=== PATIENT | male | born 1970 | race Caucasian/White ===

== ENCOUNTER 2016-10-10 10:40 | Outpatient (CLI) | payer MEDICARE, MEDICAID | END 2016-10-10 10:41 | disposition home or self-care (01) | DX: I10 Essential (primary) hypertension (principal) ==

== ENCOUNTER 2017-02-04 10:40 | Outpatient (CLI) | payer MEDICARE, MEDICAID | END 2017-02-04 10:41 | disposition home or self-care (01) | LOC: SC 10:40 | PROVIDERS: ATTEND Internal Medicine Pulmonary Disease | DX: G47.33 Obstructive sleep apnea (adult) (pediatric) (principal); K21.9 Gastro-esophageal reflux disease without esophagitis; J44.9 Chronic obstructive pulmonary disease, unspecified | CPT/HCPCS: 99203; G0463; 99212 ==

== ENCOUNTER 2017-03-05 19:47 | Outpatient (CLI) | payer MEDICARE, MEDICAID | END 2017-03-05 19:48 | disposition home or self-care (01) | LOC: SC 19:47 | PROVIDERS: ATTEND Internal Medicine Pulmonary Disease | DX: G47.33 Obstructive sleep apnea (adult) (pediatric) (principal); G47.61 Periodic limb movement disorder | CPT/HCPCS: 95810 ==

== ENCOUNTER 2017-03-31 13:48 | Outpatient (CLI) | payer MEDICARE, MEDICAID | END 2017-03-31 13:49 | disposition home or self-care (01) | LOC: SC 13:48 | PROVIDERS: ATTEND Nurse Practitioner Family | DX: G47.61 Periodic limb movement disorder (principal); R06.83 Snoring | CPT/HCPCS: 99213; G0463; 99212 ==

== ENCOUNTER 2017-04-02 11:45 | Outpatient (CLI) | payer MEDICARE, MEDICAID ==
[2017-04-02 19:36] LABS: ALBUMIN/GLOBULIN RATIO 1.8 (1.0-2.2); BILIRUBIN,TOTAL 0.6 mg/dL (0.2-1.0); BUN - BLOOD UREA NITROGEN 11 mg/dL (6-20); CALCIUM 9.3 mg/dL (8.5-10.3); CARBON DIOXIDE - CO2 28 mmol/L (21-32); CHLORIDE 101 mmol/L (101-111); CHOL/HDL RATIO 3.8 (<5.0); CHOLESTEROL 138 mg/dL; CREATININE 0.9 mg/dL (0.6-1.2); GFR - MDRD 90 (>89); GLUCOSE 100 mg/dL (70-100); HDL CHOLESTEROL 36 mg/dL; LDL/HDL RATIO 2.5 (<3.6); POTASSIUM 3.7 mmol/L (3.5-5.0); SODIUM 139 mmol/L (135-145); TRIGLYCERIDES 63 mg/dL; VLDL CHOLESTEROL 13 mg/dL
== END 2017-04-02 11:46 | disposition home or self-care (01) ==
LOC: LAB.WCP 11:45
PROVIDERS: ATTEND Family Medicine
DX: E78.5 Hyperlipidemia, unspecified (principal)
CPT/HCPCS: 36415; 80053; 80061

== ENCOUNTER 2017-08-15 11:30 | Outpatient (CLI) | payer MEDICARE, MEDICAID ==
[2017-08-15 19:29] LABS: THYROID STIMULATING HORMONE 0.68 uIU/mL (0.34-5.60)
[2017-08-15 19:31] LABS: FREE T4 (FREE THYROXINE) 0.67 ng/dL (0.58-1.64)
== END 2017-08-15 11:31 | disposition home or self-care (01) ==
LOC: LAB.WCP 11:30
PROVIDERS: ATTEND Family Medicine
DX: E05.90 Thyrotoxicosis, unspecified without thyrotoxic crisis or storm (principal)
CPT/HCPCS: 36415; 84439; 84443; 84481

== ENCOUNTER 2018-07-29 12:06 | Outpatient (CLI) | payer MEDICARE, MEDICAID ==
[2018-07-29 19:20] LABS: BASOPHILS # (AUTO) 0.1 10^3/uL (0.0-0.1); BASOPHILS % (AUTO) 1.5 %; EOSINOPHILS # (AUTO) 0.8 10^3/uL (0.0-0.7); EOSINOPHILS % (AUTO) 12.2 %; HGB - HEMOGLOBIN 13.3 g/dL (14.0-18.0); LYMPHOCYTES # (AUTO) 1.6 10^3/uL (1.5-3.5); LYMPHOCYTES % (AUTO) 23.9 %; MEAN CORPUSCULAR HEMOGLOBIN 29.7 pg (27.0-31.0); MEAN CORPUSCULAR HGB CONC 33.2 g/dL (32.0-36.0); MEAN CORPUSCULAR VOLUME 89.5 fL (80.0-94.0); MONOCYTES # (AUTO) 0.4 10^3/uL (0.0-1.0); MONOCYTES % (AUTO) 5.8 %; NEUTROPHILS # (AUTO) 3.8 10^3/uL (1.5-6.6); NEUTROPHILS % (AUTO) 56.6 %; PLT - PLATELET COUNT 271 10^3/uL (130-450); RED BLOOD COUNT 4.47 10^6/uL (4.70-6.10); RED CELL DISTRIBUTION WIDTH 13.3 % (12.0-15.0); WHITE BLOOD COUNT 6.7 x10^3/uL (4.8-10.8)
[2018-07-29 19:32] LABS: ALBUMIN/GLOBULIN RATIO 1.3 (1.0-2.2); ALKALINE PHOSPHATASE 69 IU/L (42-121); ALT ALANINE AMINOTRANSFERASE 14 IU/L (10-60); AST ASPARTATE AMINOTRANSFERASE 17 IU/L (10-42); BILIRUBIN,TOTAL 0.8 mg/dL (0.2-1.0); BUN - BLOOD UREA NITROGEN 10 mg/dL (6-20); CALCIUM 9.1 mg/dL (8.5-10.3); CARBON DIOXIDE - CO2 30 mmol/L (21-32); CHLORIDE 100 mmol/L (101-111); CHOLESTEROL 151 mg/dL; CREATININE 0.8 mg/dL (0.6-1.2); GFR - MDRD 103 (>89); GLUCOSE 96 mg/dL (70-100); HDL CHOLESTEROL 50 mg/dL; SODIUM 139 mmol/L (135-145); TOTAL PROTEIN 7.1 g/dL (6.7-8.2)
[2018-07-29 19:41] LABS: HB2 TOTAL 14.1 g/dL; HEMOGLOBIN A1C 0.46 g/dL; HEMOGLOBIN A1C % 5.1 % (4.6-6.2)
[2018-07-29 19:56] LABS: LDL CHOLESTEROL,DIRECT 94 mg/dL; LDLD/HDL RATIO 1.9 (<3.6)
== END 2018-07-29 12:07 | disposition home or self-care (01) ==
LOC: LAB.WCP 12:06
PROVIDERS: ATTEND Family Medicine
DX: E78.5 Hyperlipidemia, unspecified (principal); R73.01 Impaired fasting glucose; R79.89 Other specified abnormal findings of blood chemistry; D64.9 Anemia, unspecified
CPT/HCPCS: 36415; 80053; 80061; 83036; 83721; 84443; 85025

== ENCOUNTER 2018-08-06 11:32 | Outpatient (CLI) | payer MEDICARE, MEDICAID ==
[2018-08-06 20:31] LABS: FREE T4 (FREE THYROXINE) 0.91 ng/dL (0.58-1.64)
== END 2018-08-06 11:33 | disposition home or self-care (01) ==
LOC: LAB.WCP 11:32
PROVIDERS: ATTEND Family Medicine
DX: R79.89 Other specified abnormal findings of blood chemistry (principal)
CPT/HCPCS: 36415; 84439; 84443

== ENCOUNTER 2018-09-09 11:12 | Outpatient (CLI) | payer MEDICARE, MEDICAID ==
--- NOTE | 2018-09-10 11:54 | Ultrasound Report ---
Reason: HYPERTHYROIDISM Procedure Date: 09/09/2018 Accession Number: [id number] / [id number] Procedure: US - Head or Neck Soft Tissue CPT Code: FULL RESULT: EXAM: THYROID ULTRASOUND EXAM DATE: 09/09/2018 11:18 AM. CLINICAL HISTORY: Hyperthyroidism. COMPARISON: None. TECHNIQUE: Real time sonographic imaging of the thyroid was performed by the fractionating still operator. Multiple open claims representative static images were saved for review. FINDINGS: THYROID GLAND: Right Lobe: 6.1 x 2.2 x 2.5 cm, volume 17.5 cc. Normal background echotexture. Right Lobe Nodules: 1. Oval, circumscribed, parallel orientation mixed cystic solid nonvascular mass 10 x 6 x 9 mm. 2. 4 mm oval mass midpole, hypoechoic. 3. Nonvascular mildly hypoechoic, 8 x 7 x 8 mm, lower pole. Left Lobe: 5 x 1.6 x 2.2 cm, volume 9.2 cc. Normal background echotexture. Left Lobe Nodules: 1. 3 x 2 x 3 mm oval hypoechoic upper lobe nodule. Isthmus: 0.5 cm AP. Isthmic Nodules: None. LYMPH NODES: No adenopathy demonstrated in the central or lateral compartment. OTHER: None. IMPRESSION: 1. Low suspicion 1 cm nodule mid pole right thyroid. 2. 8 mm solid nodule lower pole right thyroid of intermediate suspicion does not meet criteria for FNA based on size; recommend 6 month follow-up imaging to ensure imaging stability. 3. Sub-5 mm intermediate suspicion oval nodules right mid pole and left upper pole thyroid can be followed at the time of surveillance imaging. Management recommendations are based on 2015 [place] [employer] Management Guidelines for Adult Patients with Thyroid Nodules and Differentiated Thyroid Cancer. RADIA
== END 2018-09-09 11:13 | disposition home or self-care (01) ==
LOC: DI 11:12
PROVIDERS: ATTEND Family Medicine
DX: E04.2 Nontoxic multinodular goiter (principal)
CPT/HCPCS: 76536

== ENCOUNTER 2019-01-15 12:08 | Outpatient (CLI) | payer MEDICARE, MEDICAID ==
--- NOTE | 2019-01-17 07:13 | Ultrasound Report ---
Reason: HYPERTHYROIDISM, THYROID NODULE Procedure Date: 01/15/2019 Accession Number: [id number] / [id number] Procedure: US - Head or Neck Soft Tissue CPT Code: FULL RESULT: EXAM: THYROID ULTRASOUND EXAM DATE: 01/15/2019 01:01 PM. CLINICAL HISTORY: HYPERTHYROIDISM, THYROID NODULE. COMPARISON: HEAD OR NECK SOFT TISSUE 09/09/2018 11:18 AM. TECHNIQUE: Real time sonographic imaging of the thyroid was performed by the computer applications engineer. Multiple motor vehicle representative static images were saved for review. FINDINGS: THYROID GLAND: Right Lobe: 6.0 x 1.5 x 2.6 cm, volume 11.2 cc. Normal background echotexture. Right Lobe Nodules: Hypoechoic solid nodule in the superior pole measures 4 x 3 x 5 mm, intermediate suspicion sonographic pattern, previously 3 x 4 x 6 mm. Cystic nodule with eccentric solid area in the mid thyroid lobe measures 1.0 x 0.7 x 0.8 cm, low suspicion sonographic pattern, previously 0.6 x 0.9 x 0.7 cm. Cystic nodule in the inferior pole measures 3 x 2 x 4 mm, benign sonographic pattern. Left Lobe: 5.0 x 2.4 x 1.7 cm, volume 10.0 cc. Normal background echotexture. Left Lobe Nodules: Solid and cystic nodule in the mid thyroid lobe measures 4 x 2 x 3 mm, low suspicion sonographic pattern. Solid and cystic nodule in the mid thyroid lobe measures 3 x 2 x 3 mm, low suspicion sonographic pattern, previously 2 x 3 x 6 mm. Isthmus: 0.8 cm AP. Isthmic Nodules: None. LYMPH NODES: No adenopathy demonstrated in the central or lateral compartment. OTHER: None. IMPRESSION: Multinodular goiter, stable. 1-2 year follow-up can be obtained Management recommendations are based on 2015 [place] [employer] Management Guidelines for Adult Patients with Thyroid Nodules and Differentiated Thyroid Cancer. RADIA
== END 2019-01-15 12:09 | disposition home or self-care (01) ==
LOC: DI 12:08
PROVIDERS: ATTEND Family Medicine
DX: E05.90 Thyrotoxicosis, unspecified without thyrotoxic crisis or storm (principal); E04.2 Nontoxic multinodular goiter
CPT/HCPCS: 76536

== ENCOUNTER 2019-05-17 11:01 | Outpatient (CLI) | payer MEDICARE, MEDICAID ==
--- NOTE | 2019-05-17 17:07 | CT Report ---
Reason: COPD, ASTHMA Procedure Date: 05/17/2019 Accession Number: [id number] / [id number] Procedure: CT - CHEST WO CPT Code: Final Report FULL RESULT: EXAM: CT CHEST EXAM DATE: 05/17/2019 11:24 AM. CLINICAL HISTORY: COPD, ASTHMA. COMPARISONS: CHEST W/ 03/16/2016. TECHNIQUE: Routine helical CT imaging was performed through the chest. IV contrast: None. Reconstructions: Coronal and sagittal. In accordance with CT protocol optimization, one or more of the following dose reduction techniques were utilized for this exam: automated exposure control, adjustment of mA and/or KV based on patient size, or use of iterative reconstructive technique. FINDINGS: Lungs/Pleura: Mild centrilobular emphysema. No nodules, bronchial thickening, consolidation, or edema. Pulmonary vasculature is normal. No pericardial or pleural effusion. No pneumothorax. Mediastinum: No adenopathy or masses. The heart and great vessels are normal. Bones: Mild multilevel generative changes throughout the thoracic spine. Visualized Abdomen: Unremarkable. IMPRESSION: Mild centrilobular emphysema. No superimposed acute cardiopulmonary process. RADIA
== END 2019-05-17 11:02 | disposition home or self-care (01) ==
LOC: DI 11:01
PROVIDERS: ATTEND Physician Assistant
DX: J43.2 Centrilobular emphysema (principal)
CPT/HCPCS: 71250

== ENCOUNTER 2020-09-26 08:00 | Outpatient (CLI) | payer MEDICARE, MEDICAID ==
[2020-09-26 17:53] LABS: BASOPHILS # (AUTO) 0.1 10^3/uL (0.0-0.1); BASOPHILS % (AUTO) 1.1 %; EOSINOPHILS # (AUTO) 0.5 10^3/uL (0.0-0.7); EOSINOPHILS % (AUTO) 4.3 %; HCT - HEMATOCRIT 43.6 % (42.0-52.0); HGB - HEMOGLOBIN 14.3 g/dL (14.0-18.0); LYMPHOCYTES # (AUTO) 2.2 10^3/uL (1.5-3.5); LYMPHOCYTES % (AUTO) 20.3 %; MEAN CORPUSCULAR HEMOGLOBIN 29.9 pg (27.0-31.0); MEAN CORPUSCULAR HGB CONC 32.8 g/dL (32.0-36.0); MEAN PLATELET VOLUME 10.8 fL (7.4-11.4); MONOCYTES # (AUTO) 0.8 10^3/uL (0.0-1.0); MONOCYTES % (AUTO) 7.1 %; NEUTROPHILS # (AUTO) 7.1 10^3/uL (1.5-6.6); NEUTROPHILS % (AUTO) 66.8 %; PLT - PLATELET COUNT 320 10^3/uL (130-450); RED BLOOD COUNT 4.79 10^6/uL (4.70-6.10); RED CELL DISTRIBUTION WIDTH 11.9 % (12.0-15.0); WHITE BLOOD COUNT 10.6 x10^3/uL (4.8-10.8)
[2020-09-26 18:30] LABS: THYROID STIMULATING HORMONE 0.42 uIU/mL (0.34-5.60)
[2020-09-26 18:32] LABS: % IRON SATURATION 20 % (20-50); IRON 71 ug/dL (45-182); TOTAL IRON BINDING CAPACITY 353 ug/dL (250-450); TRANSFERRIN 252 mg/dL (180-329)
[2020-09-26 19:08] LABS: ALBUMIN 4.5 g/dL (3.2-5.5); ALBUMIN/GLOBULIN RATIO 1.6 (1.0-2.2); ALKALINE PHOSPHATASE 49 IU/L (42-121); ALT ALANINE AMINOTRANSFERASE 26 IU/L (10-60); AST ASPARTATE AMINOTRANSFERASE 23 IU/L (10-42); BILIRUBIN,TOTAL 0.9 mg/dL (0.2-1.0); BUN - BLOOD UREA NITROGEN 11 mg/dL (6-20); CALCIUM 9.3 mg/dL (8.5-10.3); CARBON DIOXIDE - CO2 25 mmol/L (21-32); CHLORIDE 98 mmol/L (101-111); CHOL/HDL RATIO 3.5 (<5.0); CHOLESTEROL 146 mg/dL; CREATININE 1.2 mg/dL (0.6-1.2); GFR - MDRD 64 (>89); GLUCOSE 118 mg/dL (70-100); HDL CHOLESTEROL 42 mg/dL; LDL CHOLESTEROL,CALCULATED 93 mg/dL; LDL/HDL RATIO 2.2 (<3.6); POTASSIUM 3.8 mmol/L (3.5-5.0); SODIUM 136 mmol/L (135-145); TOTAL PROTEIN 7.4 g/dL (6.7-8.2); TRIGLYCERIDES 55 mg/dL; VLDL CHOLESTEROL 11 mg/dL
[2020-09-26 20:17] LABS: ESTIMATED AVERAGE GLUCOSE 108 mg/dL (70-100); HEMOGLOBIN A1c% 5.4 % (4.27-6.07)
== END 2020-09-26 23:59 | disposition home or self-care (01) ==
LOC: LAB.WCP 08:00
PROVIDERS: ATTEND Family Medicine
DX: E78.5 Hyperlipidemia, unspecified (principal); Z12.5 Encounter for screening for malignant neoplasm of prostate; E05.90 Thyrotoxicosis, unspecified without thyrotoxic crisis or storm; D64.9 Anemia, unspecified; R73.01 Impaired fasting glucose
CPT/HCPCS: 36415; 80053; 80061; 82607; 82728; 83036; 83540; 84443; 84466; 85025; G0103; 83721; 84153

== ENCOUNTER 2020-12-18 09:20 | Observation (INO) | payer MEDICARE, MEDICAID ==
[2020-12-18] MEDS ORDERED: LACTATED RINGERS 1,000 ML IV ONE ×2 (09:22→11:07)
[2020-12-18] MEDS ORDERED: METOPROLOL 5 MG/5 ML VIAL IVP ONE ×2 (10:57→11:53)
[2020-12-18] MEDS: METOPROLOL 5 MG/5 ML VIAL IVP PRN ×2 (11:00→12:00)
--- NOTE | 2020-12-18 11:00 | CONSULTATION NOTE ---
Consultation Report: Patient arrived for scheduled screening colonoscopy. Pt was noted to have HR in 140-150s, irregular pulse. EKG ordered which showed SVT. Hospitalist consulted to assist with care. Patient will have lab work and beta blockade per hospitalist. Will re-evaluate in a few hours after labwork completed.
[2020-12-18 11:35] LABS: BASOPHILS # (AUTO) 0.1 10^3/uL (0.0-0.1); BASOPHILS % (AUTO) 0.8 %; EOSINOPHILS # (AUTO) 0.5 10^3/uL (0.0-0.7); EOSINOPHILS % (AUTO) 4.7 %; HCT - HEMATOCRIT 38.6 % (42.0-52.0); HGB - HEMOGLOBIN 12.8 g/dL (14.0-18.0); LYMPHOCYTES % (AUTO) 19.7 %; MEAN CORPUSCULAR HEMOGLOBIN 29.6 pg (27.0-31.0); MEAN CORPUSCULAR HGB CONC 33.2 g/dL (32.0-36.0); MEAN CORPUSCULAR VOLUME 89.4 fL (80.0-94.0); MEAN PLATELET VOLUME 9.7 fL (7.4-11.4); MONOCYTES # (AUTO) 0.9 10^3/uL (0.0-1.0); MONOCYTES % (AUTO) 8.9 %; NEUTROPHILS # (AUTO) 6.7 10^3/uL (1.5-6.6); NEUTROPHILS % (AUTO) 65.5 %; PLT - PLATELET COUNT 258 10^3/uL (130-450); RED BLOOD COUNT 4.32 10^6/uL (4.70-6.10); RED CELL DISTRIBUTION WIDTH 12.5 % (12.0-15.0); WHITE BLOOD COUNT 10.2 x10^3/uL (4.8-10.8)
[2020-12-18 11:50] LABS: ALBUMIN 4.3 g/dL (3.2-5.5); ALBUMIN/GLOBULIN RATIO 1.5 (1.0-2.2); BILIRUBIN,TOTAL 0.9 mg/dL (0.2-1.0); CALCIUM 8.5 mg/dL (8.5-10.3); CREATININE 1.3 mg/dL (0.6-1.2); MAGNESIUM 2.3 mg/dL (1.7-2.8); PHOSPHORUS 4.5 mg/dL (2.5-4.6); POTASSIUM 3.3 mmol/L (3.5-5.0); TOTAL PROTEIN 7.2 g/dL (6.7-8.2)
[2020-12-18] MEDS ORDERED: ACETAMINOPHEN 325 MG TABLET PO PRN (11:52)
[2020-12-18] MEDS ORDERED: ONDANSETRON ODT 4 MG TABLET TL PRN (11:52)
[2020-12-18] MEDS ORDERED: ZOLPIDEM 5 MG TABLET PO PRN (11:52)
[2020-12-18] MEDS ORDERED: SODIUM CHLORIDE FLUSH 0.9% 10 ML SYRINGE IVP PRN (11:52)
[2020-12-18] MEDS ORDERED: IBUPROFEN 600 MG TABLET PO PRN (11:52)
[2020-12-18] MEDS ORDERED: MORPHINE 2 MG/ML CARPUJECT IVP PRN (11:52)
[2020-12-18] MEDS ORDERED: oxyCODONE 5 MG TABLET PO PRN (11:52)
[2020-12-18] MEDS: METOPROLOL TARTRATE 25 MG TABLET PO SCH ×2 (13:00→20:29)
[2020-12-18] MEDS ORDERED: POTASSIUM CHLOR 10 MEQ/100 ML 10 MEQ/100 ML BAG IV ONE ×2 (13:01→14:03)
[2020-12-18] MEDS: SODIUM CHLORIDE 0.9% 1,000 ML IV SCH ×2 (13:02→23:53)
[2020-12-18] MEDS ORDERED: SODIUM CHLORIDE 0.9% 500 ML IV ONE (13:03)
--- NOTE | 2020-12-18 13:22 | PHARMACY PROGRESS NOTE ---
- Best Possible Medication History Admit Date and Time: Processed by: Nursing Medication History completed: Yes Patient Interview: Completed Secondary Source(s): Physician records, Pharmacy records, Insurance records As the person ultimately responsible for medication therapy, providers are able to order a medication from an existing home medication list in [facility] via the "Reconcile Routine" prior to Confirmation of that medication by technology support analyst. Such practice is discouraged except when the physician, in their clinical judgment, deems that a medical need exists for a medication without regard to previous use.
[2020-12-18 17:47] LABS: B. PARAPERTUSSIS- RESP PCR PAN NOT DETECTED; B. PERTUSSIS- RESP PCR PANEL NOT DETECTED; C. PNEUMONIAE- RESP PCR PANEL NOT DETECTED; CORONAVIRUS 229E-RESP PCR NOT DETECTED; CORONAVIRUS HKU1-RESP PCR NOT DETECTED; CORONAVIRUS NL63-RESP PCR NOT DETECTED; CORONAVIRUS OC43-RESP PCR NOT DETECTED; HUMAN METAPNEUMOVIRUS NOT DETECTED; INFLUENZA A- RESP PCR PANEL NOT DETECTED; INFLUENZA B - RESP PCR PANEL NOT DETECTED; M. PNEUMONIAE- RESP PCR PANEL NOT DETECTED; PARAINFLUENZA VIRUS 1 NOT DETECTED; PARAINFLUENZA VIRUS 2 NOT DETECTED; PARAINFLUENZA VIRUS 3 NOT DETECTED; PARAINFLUENZA VIRUS 4 NOT DETECTED; RHINOVIRUS/ENTEROVIRUS NOT DETECTED; RSV- RESP PCR PANEL NOT DETECTED; SARS-CoV-2 -RESP PCR PANEL NOT DETECTED
--- NOTE | 2020-12-18 17:48 | HISTORY & PHYSICAL EXAMINATION ---
Chief Complaint - Chief Complaint Chief Complaint: Fast heart beat History of Present Illness - Admitted From Admitted From:: PACU - History Obtained From Records Reviewed: Chart History obtained from: Patient and PACU staff Exam Limitations: None - History of Present Illness HPI Comment/Other: Patient is a 50-year-old male with a past medical history of COPD, hypertension, hyperlipidemia who presented to outpatient PACU today for an elective colonoscopy that was planned for today by Dr. Crawford. In the PACU in the preop assessment process he was placed on a registered nurse cardiac and found to be in SVT with heart rates in the 140s to 150s. He did not have any symptoms of chest pain or shortness of breath however this sustained long enough that Dr. Crawford called to request a medicine consult. I arrived at the bed and found the patient to be comfortable in no acute distress with no chest pain or shortness of breath. He did in fact appear to be either an SVT or in atrial fibrillation with rapid ventricular response which was difficult to assess on athletic monitor. EKG looked like and was read as SVT. His blood pressure was in the 115 to 80s neighborhood however escalated shortly after to the 150s over 90s. After taking a history from the patient and assessing that he may have had a history of some arrhythmia of some kind, and that he had a normal stress test 1 year ago, I proceeded to order stat labs including CBC, CMP, magnesium, phosphorus, troponin, and requested 5 mg Toprol IV push. This did not affect the heart rate very much and this was repeated ultimately 3 times on he was also given a dose of metoprolol 20 mg p.o. which eventually did decrease his heart rate to normal rates. After discussing with surgeon and anesthesia, we decided to keep the patient in observation overnight to further work this up, obtain labs, to maintain control of his heart rate for probable colonoscopy tomorrow. History - Past Medical History Cardiovascular: reports: Hypertension, High cholesterol Respiratory: reports: Asthma, COPD GI: reports: Hiatal hernia : reports: None Psych: reports: None Musculoskeletal: reports: None Derm: reports: Other MRSA Hx?: No - Past Surgical History General: reports: Colonoscopy Derm: reports: Skin cancer surgery - Family & Social History Family History Comment/Other: Patient denies any family history Living arrangement: At home Living Situation: With spouse/s.o. - Substance History Use: Uses substance without health or social issues: NONE - POLST POLST Status: Full Code Meds/Allgy - Home Medications Home Medications: Ambulatory Orders Medication Instructions Recorded Confirmed Albuterol Sulfate [Proair Hfa 2 puffs INH TID PRN 03/14/16 12/18/20 Inhaler] Fluticasone 110 Mcg [Flovent] 220 mcg INH BID 03/14/16 12/18/20 Montelukast [Singulair] 10 mg DAILY 03/14/16 12/18/20 Omeprazole [PriLOSEC] 20 mg DAILY 03/14/16 12/18/20 Pravastatin Sodium 10 mg PO DAILY 03/14/16 12/18/20 lisinopriL [Lisinopril] 10 mg PO DAILY 03/14/16 12/18/20 - Allergies Allergies/Adverse Reactions: Allergies Allergy/AdvReac Type Severity Reaction Status Date / Time No Known Drug Allergies Allergy Verified 03/14/16 09:54 Review of Systems - Constitutional Constitutional: denies: Fatigue - Cardiovascular Cariovascular: denies: Irregular heart rate, Palpitations, Chest pain - Respiratory Respiratory: reports: SOB with exertion (Patient reports being able to ambulate and do some yard work but eventually he usually does have to take a break due to difficulty breathing). denies: Cough, SOB at rest - All Other Systems All Other Systems: reports: Reviewed and negative Prior Level of Functionality: Fully ambulatory and independent Exam - Vital Signs Reviewed Vital Signs: Yes Vital Signs: Vital Signs x48h Temp Pulse Pulse Resp BP BP Pulse Ox 12/18/20 15:34 36.8 C 66 16 129/82 H 96 12/18/20 13:00 108/65 12/18/20 12:35 36.7 C 68 16 100/67 94 12/18/20 12:30 108/65 12/18/20 12:13 36.8 C 67 12 107/83 H 95 12/18/20 11:37 36.4 C L 115 H 12 112/77 96 12/18/20 11:30 100/67 12/18/20 11:00 36.6 C 127 H 14 116/84 H 95 12/18/20 10:15 36.6 C 127 H 13 113/56 L 95 - Physical Exam General Appearance: positive: No acute distress Eyes Bilateral: positive: Normal inspection ENT: positive: ENT inspection nml Neck: positive: Nml inspection Respiratory: positive: Chest non-tender, No respiratory distress, Breath sounds nml Cardiovascular: positive: No murmur, No gallop, Irregularly irregular, Tachycardia Peripheral Pulses: positive: 2+ Abdomen: positive: Non-tender, No organomegaly, Nml bowel sounds Skin: positive: Color nml, No rash, Warm Extremities: positive: Non-tender, Full ROM, Nml appearance Neurologic/Psychiatric: positive: Oriented x3, CN's nml (2-12), Motor nml Conclusion/Plan - Problem List (1) Supraventricular tachycardia Conclusion/Plan: Patient found to be in SVT sustained which initially did not respond to the first 2 doses of metoprolol IV. He was given a oral dose of 25 mg metoprolol tartrate followed by a third dose of Toprol IV and he eventually converted to sinus rhythm with heart rates in the 60s. I suspect he may have paroxysmal atrial fibrillation. Pending telemetry reads overnight, may need to consider anticoagulation at some points. Follow-up echocardiogram results, no lab abnormalities to suggest underlying etiology other than mild hypokalemia which would be expected with bowel prep Blood pressure tolerated metoprolol dosing fairly well. We will keep him observation in telemetry overnight and continue metoprolol scheduled 25 mg p.o. twice daily. Have ordered an echocardiogram but unfortunately central sterile technician is already left for the day, so we will follow this up tomorrow. Pending clinical course and outcome of studies likely can go home tomorrow post colonoscopy and follow-up with his PCP and/or qa consultant. (2) Hyperlipidemia Conclusion/Plan: Stable Continue home meds (3) Hypertension Conclusion/Plan: Stable Continue home meds Adding metoprolol for rate control, monitor blood pressures (4) COPD (chronic obstructive pulmonary disease) Conclusion/Plan: Stable without respiratory symptoms, wheezing, shortness of breath or oxygen requirement. As needed nebs (5) Hypokalemia due to excessive gastrointestinal loss of potassium Conclusion/Plan: Mild secondary to GI loss from the bowel prep prior to colonoscopy. Replaced orally. - Lab Results Fish Bones: 12/18/20 11:31 12/18/20 11:31 - EKG Results EKG Interpreted Independently: Yes EKG Comparison: No prior EKG Core Measures - Anticipated LOS I expect patient to be DC'd or transferred within 96 hours.: Yes - DVT/VTE - Prophylaxis VTE/DVT Device ordered at admit?: Yes
[2020-12-18] MEDS: SODIUM CHLORIDE FLUSH 0.9% 10 ML SYRINGE IVP SCH ×2 (17:50→23:54)
[2020-12-18] MEDS ORDERED: ALBUTEROL NEB 2.5 MG/3 ML INH PRN (18:06)
[2020-12-18] MEDS ORDERED: PRAVASTATIN 10 MG TABLET PO SCH (21:00)
[2020-12-19 06:13] LABS: CALCIUM 7.8 mg/dL (8.5-10.3); CREATININE 0.8 mg/dL (0.6-1.2); POTASSIUM 3.8 mmol/L (3.5-5.0)
[2020-12-19] MEDS ORDERED: PANTOPRAZOLE 40 MG TABLET PO SCH (07:00)
[2020-12-19] MEDS ORDERED: lisinopriL 5 MG TABLET PO SCH ×2 (09:00→09:25)
[2020-12-19] MEDS: METOPROLOL TARTRATE 25 MG TABLET PO SCH (09:30)
[2020-12-19] MEDS: SODIUM CHLORIDE 0.9% 1,000 ML IV SCH (09:31)
[2020-12-19] MEDS: SODIUM CHLORIDE FLUSH 0.9% 10 ML SYRINGE IVP SCH (09:31)
[2020-12-19] MEDS ORDERED: MIDAZOLAM 2 MG/2 ML VIAL ONE (12:00)
[2020-12-19] MEDS ORDERED: fentaNYL 100 MCG/2 ML VIAL ONE (12:02)
[2020-12-19] MEDS ORDERED: PROPOFOL 200 MG/20 ML VIAL IVP ONE (12:03)
[2020-12-19 13:02] VITALS: BP 107/64
--- NOTE | 2020-12-19 13:45 | DISCHARGE SUMMARY ---
Discharge Summary Admit Date: 12/18/20 Discharge Date: 12/19/20 Discharging Provider: Abdirahman Sams Primary Care Provider: Ammy Huntley Code Status: Attempt Resuscitation Condition at Discharge: Stable Discharge Disposition: 01 Home, Self Care - DIAGNOSES Admission Diagnoses: Supraventricular tachycardia Hyperlipidemia Hypertension COPD Hypokalemia due to excessive gastrointestinal loss of potassium Discharge Diagnoses with Status of Each Condition: Supraventricular tachycardia: Acute. Resolved Hyperlipidemia. Chronic. Continue home medication Hypertension: Chronic. Stable. Continue home medication COPD: Stable Hypokalemia due to excessive gastrointestinal loss of potassium: Acute. Resolved - HPI History of Present Illness: Patient is a 50-year-old male with a past medical history of COPD, hypertension, hyperlipidemia who presented to outpatient PACU today for an elective c olonoscopy that was planned for today by Dr. Crawford. In the PACU in the preop assessment process he was placed on a telemetry monitor and found to be in SVT with heart rates in the 140s to 150s. He did not have any symptoms of chest pain or shortness of breath however this sustained long enough that Dr. Crawford called to request a medicine consult. I arrived at the bed and found the patient to be comfortable in no acute distress with no chest pain or shortness of breath. He did in fact appear to be either an SVT or in atrial fibrillation with rapid ventricular response which was difficult to assess on cardiac monitor. EKG looked like and was read as SVT. His blood pressure was in the 115 to 80s neighborhood however escalated shortly after to the 150s over 90s. After taking a history from the patient and assessing that he may have had a history of some arrhythmia of some kind, and that he had a normal stress test 1 year ago, I proceeded to order stat labs including CBC, CMP, magnesium, phosphorus, troponin, and requested 5 mg Toprol IV push. This did not affect the heart rate very much and this was repeated ultimately 3 times on he was also given a dose of metoprolol 20 mg p.o. which eventually did decrease his heart rate to normal rates. After discussing with surgeon and anesthesia, we decided to keep the patient in observation overnight to further work this up, obtain labs, to maintain control of his heart rate for probable colonoscopy tomorrow. - HOSPITAL COURSE Hospital Course: Patient's SVT resolved after 2 doses of metoprolol IV and an oral dose of metoprolol tartrate 25 mg po. Speaking with the patient he reports a previous occurrence. He has seen cardiology for this before. He has been advised to follow-up with his PCP and or cardiology for further evaluation and recommendations. The plan had been to proceed with a 2D echocardiogram today 12/19/20. However this was again canceled because the patient had something to eat in the morning. He is agreeable to return to the hospital tomorrow 12/20/20 by 9 AM for outpatient colonoscopy as initially planned. He is being discharged in stable condition. He has been advised that he is supposed to have no food by mouth in preparation for the colonoscopy tomorrow. - ALLERGIES Allergies/Adverse Reactions: Allergies Allergy/AdvReac Type Severity Reaction Status Date / Time No Known Drug Allergies Allergy Verified 03/14/16 09:54 - MEDICATIONS Home Medications: Ambulatory Orders Medication Instructions Recorded Confirmed Albuterol Sulfate [Proair Hfa 2 puffs INH TID PRN 03/14/16 12/18/20 Inhaler] Fluticasone 110 Mcg [Flovent] 220 mcg INH BID 03/14/16 12/18/20 Montelukast [Singulair] 10 mg DAILY 03/14/16 12/18/20 Omeprazole [PriLOSEC] 20 mg DAILY 03/14/16 12/18/20 Pravastatin Sodium 10 mg PO DAILY 03/14/16 12/18/20 lisinopriL [Lisinopril] 10 mg PO QPM 03/14/16 12/19/20 - PHYSICAL EXAM AT DISCHARGE General Appearance: positive: No acute distress, Alert Eyes Bilateral: positive: PERRL, EOMI ENT: positive: No signs of dehydration Neck: positive: No JVD, Trachea midline Respiratory: positive: Chest non-tender, No respiratory distress, Breath sounds nml. negative: Wheezes, Rales, Rhonchi Cardiovascular: positive: Regular rate & rhythm, No murmur Abdomen: positive: Non-tender, No organomegaly, Nml bowel sounds. negative: Guarding, Rebound Back: positive: Nml inspection Skin: positive: Color nml, No rash, Warm, Dry Extremities: positive: Non-tender, Full ROM, Nml appearance, No pedal edema Neurologic/Psychiatric: positive: Oriented x3, Mood/affect nml - LABS Result Diagrams: 12/18/20 11:31 12/19/20 05:40 - TIME SPENT Time Spent in Discharge (Minutes): 25
--- NOTE | 2020-12-19 13:47 | Discharge Plan ---
Discharge Plan Problem Reviewed?: Yes Disposition: 01 Home, Self Care Condition: Stable Activity Restrictions: Activity as Tolerated Health Concerns: You presented to the hospital yesterday for an outpatient colonoscopy. However during the preop evaluation stage of the procedure he went into SVT which is supraventricular tachycardia with heart rate between 140-150. As a result he was admitted for further evaluation and treatment. You were treated with metoprolol and your heart rate improved to 60s. You were monitored overnight with no other incidents. Plan had been to proceed with colonoscopy today however this was canceled due to the fact that you had something to eat earlier in the day. You are being discharged home with a plan to return tomorrow morning by 9 AM for the colonoscopy. This was discussed with you and you expressed understanding and are in agreement with the plan. You are also to follow-up with your primary care physician for referral to cardiology whom you have seen before for the SVT. You are being discharged in stable condition. Plan of Treatment: You presented to the hospital yesterday for an outpatient colonoscopy. However during the preop evaluation stage of the procedure he went into SVT which is supraventricular tachycardia with heart rate between 140-150. As a result he was admitted for further evaluation and treatment. You were treated with metoprolol and your heart rate improved to 60s. You were monitored overnight with no other incidents. Plan had been to proceed with colonoscopy today however this was canceled due to the fact that you had something to eat earlier in the day. You are being discharged home with a plan to return tomorrow morning by 9 AM for the colonoscopy. This was discussed with you and you expressed understanding and are in agreement with the plan. You are also to follow-up with your primary care physician for referral to cardiology whom you have seen before for the SVT. You are being discharged in stable condition. Care Goals: You presented to the hospital yesterday for an outpatient colonoscopy. However during the preop evaluation stage of the procedure he went into SVT which is supraventricular tachycardia with heart rate between 140-150. As a result he was admitted for further evaluation and treatment. You were treated with metoprolol and your heart rate improved to 60s. You were monitored overnight with no other incidents. Plan had been to proceed with colonoscopy today however this was canceled due to the fact that you had something to eat earlier in the day. You are being discharged home with a plan to return tomorrow morning by 9 AM for the colonoscopy. This was discussed with you and you expressed understanding and are in agreement with the plan. You are also to follow-up with your primary care physician for referral to cardiology whom you have seen before for the SVT. You are being discharged in stable condition. Assessment: You presented to the hospital yesterday for an outpatient colonoscopy. However during the preop evaluation stage of the procedure he went into SVT which is supraventricular tachycardia with heart rate between 140-150. As a result he was admitted for further evaluation and treatment. You were treated with metoprolol and your heart rate improved to 60s. You were monitored overnight with no other incidents. Plan had been to proceed with colonoscopy today however this was canceled due to the fact that you had something to eat earlier in the day. You are being discharged home with a plan to return tomorrow morning by 9 AM for the colonoscopy. This was discussed with you and you expressed understanding and are in agreement with the plan. You are also to follow-up with your primary care physician for referral to cardiology whom you have seen before for the SVT. You are being discharged in stable condition. No Smoking: If you smoke, Please STOP! Call for help. Follow-up with: Ammy Huntley PA-C [Primary Care Provider] -
== END 2020-12-19 15:02 | disposition home or self-care (01) ==
LOC: SDS 09:20 → MS2 11:52
PROVIDERS: ADMIT Family Medicine Sports Medicine; ATTEND Internal Medicine
DX: I47.1 Supraventricular tachycardia (principal); E78.5 Hyperlipidemia, unspecified; I10 Essential (primary) hypertension; J44.9 Chronic obstructive pulmonary disease, unspecified; E87.6 Hypokalemia; Z87.891 Personal history of nicotine dependence; G47.30 Sleep apnea, unspecified; Z20.822 Contact with and (suspected) exposure to COVID-19
CPT/HCPCS: 36415; 80048; 80053; 83735; 84100; 84484; 85025; 87631; 93005; 93306; 96365; 96366; 96375; A9270; G0378; J7120; 0202U

== ENCOUNTER 2020-12-20 08:44 | Day surgery (SDC) | payer MEDICARE, MEDICAID ==
--- NOTE | 2020-12-20 09:34 | ANESTHESIA ---
Pre-Anesthesia VS, & Labs - Diagnosis hx of polyps - Procedure colonoscopy Height: 5 ft 10 in Weight (kg): 100 kg Body Mass Index: 31.6 BMI Classification: Obese - NPO >8 hours Home Medications and Allergies Albuterol Sulfate [Proair Hfa Inhaler] 2 puffs INH TID PRN 03/14/16 Fluticasone 110 Mcg [Flovent] 220 mcg INH BID 03/14/16 Montelukast [Singulair] 10 mg DAILY 03/14/16 Omeprazole [PriLOSEC] 20 mg DAILY 03/14/16 Pravastatin Sodium 10 mg PO DAILY 03/14/16 lisinopriL [Lisinopril] 10 mg PO QPM 03/14/16 Allergies/Adverse Reactions: Allergies Allergy/AdvReac Type Severity Reaction Status Date / Time No Known Drug Allergies Allergy Verified 03/14/16 09:54 Anes History & Medical History - Anesthetic History Anesthesia Complications: reports: No previous complications Family history of Anesthesia Complications: Denies Family history of Malignant Hyperthermia: Denies - Medical History Cardiovascular: reports: Hypertension, High cholesterol, Arrhythmia Pulmonary: reports: Asthma, COPD Gastrointestinal: reports: Hiatal hernia Urinary: reports: None Musculoskeletal: reports: None Skin: reports: Other Smoking Status: Former smoker - Surgical History General: reports: Colonoscopy Dermatologic: reports: Skin cancer surgery Exam General: Alert, Oriented x3, Cooperative Dental: WNL Mouth Openin Fingerbreadth Neck Mobility: Normal Mallampati classification: II Thyromental Distance: 4-6 cm Respiratory: Lungs clear Cardiovascular: Regular rate Plan Anesthesia Type: Total IV Consent for Procedure(s) Verified and Reviewed: Yes Code Status: Attempt Resuscitation ASA classification: 2-Mild systemic disease Is this case an emergency?: No
[2020-12-20] MEDS ORDERED: LACTATED RINGERS 1,000 ML IV ONE (11:47)
[2020-12-20 11:59] VITALS: BP 125/50
--- NOTE | 2020-12-20 16:00 | ANESTHESIA POST OP EVALUATION ---
Anesthesia Post Eval - Post Anesthesia Eval Vitals: Last Vital Signs Temp 36.5 C 12/20/20 11:49 Pulse 64 12/20/20 11:57 Resp 16 12/20/20 11:57 BP 125/50 L 12/20/20 11:57 Pulse Ox 100 12/20/20 11:57 CV Function Including HR & BP: Stable Pain Control: Satisfactory Nausea & Vomiting: Negative Mental Status: Baseline Respiratory Status: Airway Patent Hydration Status: Satisfactory Anesthesia Complications: None
== END 2020-12-20 08:45 | disposition home or self-care (01) ==
LOC: SDS 08:44
PROVIDERS: ATTEND Surgery
PROC: 0DBC8ZZ Excision of Ileocecal Valve, Via Natural or Artificial Opening Endoscopic (ICD-10-PCS; principal; 2020-12-20 10:00)
DX: Z12.11 Encounter for screening for malignant neoplasm of colon (principal); C18.0 Malignant neoplasm of cecum; D12.4 Benign neoplasm of descending colon; D12.3 Benign neoplasm of transverse colon; K63.89 Other specified diseases of intestine; K64.8 Other hemorrhoids; I10 Essential (primary) hypertension; E78.00 Pure hypercholesterolemia, unspecified; I47.1 Supraventricular tachycardia; J44.9 Chronic obstructive pulmonary disease, unspecified; E66.9 Obesity, unspecified; Z68.31 Body mass index [BMI] 31.0-31.9, adult; Z79.899 Other long term (current) drug therapy
CPT/HCPCS: 45385; J7120

== ENCOUNTER 2021-01-05 11:01 | Outpatient (CLI) | payer MEDICARE, MEDICAID ==
[2021-01-05 11:16] LABS: BASOPHILS # (AUTO) 0.1 10^3/uL (0.0-0.1); BASOPHILS % (AUTO) 1.1 %; EOSINOPHILS # (AUTO) 0.9 10^3/uL (0.0-0.7); EOSINOPHILS % (AUTO) 9.1 %; HCT - HEMATOCRIT 42.2 % (42.0-52.0); HGB - HEMOGLOBIN 13.8 g/dL (14.0-18.0); LYMPHOCYTES # (AUTO) 1.8 10^3/uL (1.5-3.5); LYMPHOCYTES % (AUTO) 19.8 %; MEAN CORPUSCULAR HEMOGLOBIN 29.9 pg (27.0-31.0); MEAN CORPUSCULAR HGB CONC 32.7 g/dL (32.0-36.0); MEAN CORPUSCULAR VOLUME 91.5 fL (80.0-94.0); MEAN PLATELET VOLUME 9.8 fL (7.4-11.4); MONOCYTES # (AUTO) 0.7 10^3/uL (0.0-1.0); MONOCYTES % (AUTO) 7.1 %; NEUTROPHILS # (AUTO) 5.8 10^3/uL (1.5-6.6); NEUTROPHILS % (AUTO) 62.1 %; PLT - PLATELET COUNT 280 10^3/uL (130-450); RED BLOOD COUNT 4.61 10^6/uL (4.70-6.10); RED CELL DISTRIBUTION WIDTH 12.4 % (12.0-15.0); WHITE BLOOD COUNT 9.3 x10^3/uL (4.8-10.8)
[2021-01-05 11:28] LABS: ALBUMIN 4.6 g/dL (3.2-5.5); ALBUMIN/GLOBULIN RATIO 1.6 (1.0-2.2); BILIRUBIN,TOTAL 0.5 mg/dL (0.2-1.0); CALCIUM 9.1 mg/dL (8.5-10.3); CREATININE 0.9 mg/dL (0.6-1.2); POTASSIUM 4.4 mmol/L (3.5-5.0); TOTAL PROTEIN 7.5 g/dL (6.7-8.2)
== END 2021-01-05 11:02 | disposition home or self-care (01) ==
LOC: LAB 11:01
PROVIDERS: ATTEND Surgery
DX: C18.6 Malignant neoplasm of descending colon (principal)
CPT/HCPCS: 36415; 80053; 82378; 85025

== ENCOUNTER 2021-01-12 11:06 | Outpatient (CLI) | payer MEDICARE, MEDICAID ==
[2021-01-12] MEDS ORDERED: IOVERSOL 320 100 ML VIAL IVP ONE ×2 (11:16→13:54)
[2021-01-12] MEDS ORDERED: IOVERSOL 320 50 ML VIAL ONE (11:16)
[2021-01-12] MEDS ORDERED: IOVERSOL 320 50 ML VIAL PO ONE (13:54)
--- NOTE | 2021-01-12 15:16 | CT Report ---
PROCEDURE: CHEST W INDICATIONS: COLON CANCER CONTRAST: IV CONTRAST: Optiray 320 ml: 100 PO CONTRAST: Optiray 320 ml50 TECHNIQUE: After the administration of intravenous contrast, images were acquired from the pulmonary apices to t he posterior costophrenic angles. Multiplanar MIP reformats were acquired. For radiation dose reduc tion, the following was used: automated exposure control, adjustment of mA and/or kV according to pa tient size. COMPARISON: Same day CT abdomen and pelvis. CT chest 05/17/2019. FINDINGS: Image quality: Excellent. Lungs and pleura: Mild to moderate emphysematous change. Right middle lobe fissural nodule measuring 0.3 cm is unchanged since 2019. A few calcified granuloma. Mild atelectasis or scarring. No pleural effusions or pneumothorax. Central and peripheral airways are patent and normal in caliber. Mediastinum: Heart size is normal. No pericardial effusion. No mediastinal or hilar adenopathy by size criteria. Thoracic aorta and central pulmonary arteries are normal in size. No central pulmonar y embolism. Esophagus is normal in caliber. No hiatal hernia. Bones and chest wall: No suspicious bony lesions. No vertebral body compression fractures. No axil hudson or supraclavicular adenopathy by size criteria. The thyroid is normal in size and there are no incidental findings. Abdomen: Visualized upper abdominal solid organs appear normal. Upper abdominal bowel loops are nor mal in caliber. IMPRESSION: 1. A few small pulmonary nodules measuring 0.4 cm or less. 2. Mild to moderate emphysematous change. 3. No enlarged lymph nodes identified. Reviewed by: Cristi Washington MD on 01/12/2021 3:15 PM PDT Approved by: Cristi Washington MD on 01/12/2021 3:15 PM PDT Station ID: [id number]
--- NOTE | 2021-01-12 15:25 | CT Report ---
PROCEDURE: Abdomen/Pelvis W INDICATIONS: COLON CANCER CONTRAST: IV CONTRAST: Optiray 320 ml: 100 PO CONTRAST: Optiray 320 ml50 TECHNIQUE: After the administration of oral and intravenous contrast, 5 mm thick sections acquired from the diap hragms to the symphysis. 5 mm thick coronal and sagittal reformats were acquired. For radiation dos e reduction, the following was used: automated exposure control, adjustment of mA and/or kV accordin g to patient size. COMPARISON: Same day CT chest, 05/17/2019. FINDINGS: Image quality: Excellent. ABDOMEN: Lung bases: Lung bases are clear. Heart size is normal. Solid organs: Liver and spleen are normal in size. Punctate hypodensity in the right lobe liver is u nchanged since 2019 and likely a benign cyst. Gallbladder is unremarkable. Biliary system is non dil ated. Pancreas enhances normally. No adrenal nodules. Kidneys demonstrate normal size and enhancem ent, without hydronephrosis. Peritoneum and bowel: No small bowel obstruction. No obvious mass. Mild diverticulosis. The appendix may be visualized. No free fluid or air. Nodes and vessels: Small mesenteric lymph nodes in the right lower quadrant. Largest measuring 0.9 cm , (3/51). No retroperitoneal adenopathy. Aorta and inferior vena cava are normal in size. Miscellaneous: Small fat-containing periumbilical hernia. PELVIS: Genitourinary: Bladder wall thickness is normal. Miscellaneous: No inguinal hernias or adenopathy. Bones: No suspicious bony lesions. No vertebral body compression fractures. IMPRESSION: 1. No obvious colonic mass. 2. Small mesenteric lymph nodes in the right lower quadrant. Largest measuring 0.9 cm. 3. No suspicious liver lesion. Reviewed by: Cristi Washington MD on 01/12/2021 3:24 PM PDT Approved by: Cristi Washington MD on 01/12/2021 3:24 PM PDT Station ID: [id number]
== END 2021-01-12 11:07 | disposition home or self-care (01) ==
LOC: DI 11:06
PROVIDERS: ATTEND Surgery
DX: R91.8 Other nonspecific abnormal finding of lung field (principal); J43.9 Emphysema, unspecified
CPT/HCPCS: 71260; 74177; Q9967

== ENCOUNTER 2021-05-14 08:30 | Day surgery (SDC) | payer MEDICARE, MEDICAID ==
[2021-05-14] MEDS ORDERED: LACTATED RINGERS 1,000 ML IV ONE ×2 (08:36→12:50)
[2021-05-14] MEDS ORDERED: LIDOCAINE MPF 2%-EPI 1:200000 20 ML VIAL ONE (08:52)
[2021-05-14] MEDS ORDERED: BUPIVACAINE 0.5% PF 10 ML VIAL ONE (08:52)
[2021-05-14] MEDS ORDERED: SODIUM CHLORIDE 0.9% 10 ML VIAL IVP ONE (08:52)
--- NOTE | 2021-05-14 09:57 | ANESTHESIA ---
Pre-Anesthesia VS, & Labs - Diagnosis colon cancer - Procedure colonoscopy Vital Signs: Temp Pulse Resp BP Pulse Ox 36.8 C 78 16 95 05/14/21 08:39 05/14/21 08:39 05/14/21 08:39 05/14/21 08:39 Height: 5 ft 9 in Weight (kg): 99.9 kg Body Mass Index: 32.5 BMI Classification: Obese - NPO Last Food Intake: Ate an egg sandwich 0400 Home Medications and Allergies Home Medications: Ambulatory Orders Setmelanotide Acetate [Imcivree] 1 inh INH PRN PRN 05/11/21 Fluticasone 110 Mcg [Flovent] 220 mcg INH BID 03/14/16 Montelukast [Singulair] 10 mg PO DAILY 03/14/16 Omeprazole [PriLOSEC] 20 mg PO DAILY 03/14/16 Pravastatin Sodium 10 mg PO DAILY 03/14/16 lisinopriL [Lisinopril] 10 mg PO QPM 03/14/16 Albuterol Sulf [Ventolin Hfa Inhaler] 1 - 2 puffs INH Q4HR PRN 01/09/21 Setmelanotide Acetate [Imcivree] 1 inh INH PRN PRN 05/11/21 Allergies/Adverse Reactions: Allergies Allergy/AdvReac Type Severity Reaction Status Date / Time No Known Drug Allergies Allergy Verified 01/09/21 15:11 Anes History & Medical History - Anesthetic History Anesthesia Complications: reports: No previous complications - Medical History Cardiovascular: reports: Hypertension, High cholesterol, Arrhythmia Pulmonary: reports: Asthma, COPD, Sleep apnea (untreated) Gastrointestinal: reports: Hiatal hernia, Other (history of colon cancer) Urinary: reports: None Neuro: reports: None Musculoskeletal: reports: None Endocrine/Autoimmune: reports: None Blood Disorders: reports: None Smoking Status: Former smoker (quit 2008) Psychosocial: reports: No issues indicated, Alcohol (1-2xs per month. Quit heavy drinking in 2008) History of Cancer?: Yes (colon cancer) - Surgical History General: reports: Bowel surgery, Colonoscopy Dermatologic: reports: Skin cancer surgery Exam General: Alert, Oriented x3, Cooperative, No acute distress Dental: Poor dentition, Other (loose molar on left upper side) Mouth and Teeth Image: 1 - Loose tooth Mouth Openin Fingerbreadth Neck Mobility: Normal Mallampati classification: II Thyromental Distance: 4-6 cm Mental/Cognitive Status: Alert/Oriented X3, Normal for patient Plan Anesthesia Type: Total IV Consent for Procedure(s) Verified and Reviewed: Yes Code Status: Attempt Resuscitation ASA classification: 2-Mild systemic disease Is this case an emergency?: No
[2021-05-14] MEDS ORDERED: MIDAZOLAM 2 MG/2 ML VIAL ONE (11:54)
[2021-05-14] MEDS ORDERED: fentaNYL 100 MCG/2 ML VIAL ONE (11:54)
[2021-05-14] MEDS ORDERED: PROPOFOL 200 MG/20 ML VIAL IVP ONE (12:33)
[2021-05-14] MEDS ORDERED: LIDOCAINE 2%-EPI 1:100000 20 ML MDV SUBQ ONE (12:39)
[2021-05-14] MEDS ORDERED: BUPIVACAINE 0.5% PF 10 ML VIAL IM ONE (12:40)
[2021-05-14] MEDS ORDERED: KETAMINE 500 MG/10 ML VIAL ONE (12:45)
--- NOTE | 2021-05-14 12:52 | OPERATIVE REPORT ---
Operative Report - General Procedure Date: 05/14/21 Planned Procedure: Right subclavian port placement for chemo Pre-Op Diagnosis: Colon cancer Procedure Performed: Right subclavian port placement for chemo Post Op Diagnosis: Colon cancer - Procedure Note Primary Surgeon: Ivan Anesthesia Provider: SUSANA Sun Anesthesia Technique: Local, MAC Estimated Blood Loss (mL): 20 Findings: Port in good position Complications: None apparent - Other Other Information/Narrative: After obtaining informed consent, the patient is brought to the operating room and placed in supine position on the operating table. Following successful induction of sedation with monitored anesthesia care and appropriate padding of all bony prominences, the right chest and neck were prepped and draped in the standard surgical fashion. A timeout was held per scope protocol. All elements of the surgical safety checklist were followed before, during, and after the procedure. Following infiltration with local anesthetic to create a field block, the right subclavian vein was accessed in the deltopectoral groove. The J-wire was gently placed into the vein. Fluoroscopy was used to confirm the position of the wire and in the subclavian vein. An incision was created here and carried down through the skin and subcutaneous tissue. A pocket was created with blunt dissection. The port tubing was attached to the tunneling device and passed from the access site of the vein into the pocket. It was trimmed to an appropriate length and the port attached. The port was sewn into place in the pocket. The dilator and introducer were then passed over the J-wire that was in the subclavian vein. The J-wire and dilator were removed leaving only the introducer. The tubing was then passed through the introducer and the introduc er cracked and removed per glass vial filler's directions. The port was then checked for function and flushed and michael easily. Additional local anesthetic was applied to the chest wall. The port pocket was closed with interrupted Vicryl sutures and Monocryl stitches were placed in both skin incision sites. All sponge, needle, and instrument counts were correct at the conclusion of the case. Chest x-ray in the postanesthesia care unit revealed the port in good position in the superior vena cava without evidence of pneumothorax.
--- NOTE | 2021-05-14 12:57 | ANESTHESIA POST OP EVALUATION ---
Anesthesia Post Eval - Post Anesthesia Eval Vitals: Last Vital Signs Temp 36.7 C 05/14/21 12:50 Pulse 76 05/14/21 12:50 Resp 16 05/14/21 12:50 BP 139/92 H 05/14/21 12:50 Pulse Ox 95 05/14/21 12:50 CV Function Including HR & BP: Stable Pain Control: Satisfactory Nausea & Vomiting: Negative Mental Status: Baseline Respiratory Status: Airway Patent Hydration Status: Satisfactory Anesthesia Complications: None
--- NOTE | 2021-05-14 13:14 | XRAY Report ---
PROCEDURE: Chest for Line Placement INDICATIONS: Right port TECHNIQUE: One view of the chest was acquired. COMPARISON: CT chest 01/12/2021. CXR 03/17/2016. FINDINGS: Surgical changes and devices: Right-sided port with the catheter tip projecting at the lower third of the SVC.. Lungs and pleura: No pleural effusions or pneumothorax. Minimal hazy opacity at the lung bases. Mediastinum: Mediastinal contours are unchanged. Heart size is within normal limits. Bones and chest wall: No suspicious bony lesions. Overlying soft tissues appear unremarkable. IMPRESSION: Right-sided port with the catheter tip projecting at the lower third of the SVC. No pneumothorax. Bibasilar hazy opacity most compatible with atelectasis or scarring. Reviewed by: Cristi Washington MD on 05/14/2021 1:12 PM PST Approved by: Cristi Washington MD on 05/14/2021 1:12 PM PST Station ID: [id number]
--- NOTE | 2021-05-14 13:50 | XRAY Report ---
PROCEDURE: OR Port-A-Cath INDICATIONS: PORTACATH PLACEMENT TECHNIQUE: Single intraoperative fluoroscopic image of right upper chest. COMPARISON: None. FINDINGS: Intraoperative fluoroscopic image of right upper chest shows right-sided central venous catheter tip in the region of SVC. IMPRESSION: Fluoroscopy guidance was provided intraoperatively for right chest wall Port-A-Cath placement. Reviewed by: Jose Newsome MD on 05/14/2021 1:49 PM PST Approved by: Jose Newsome MD on 05/14/2021 1:49 PM PST Station ID: [id number]
[2021-05-14 14:03] VITALS: BP 136/84
[2021-05-14] MEDS ORDERED: ceFAZolin 1 GM VIAL ONE (17:15)
== END 2021-05-14 08:31 | disposition home or self-care (01) ==
LOC: SDS 08:30
PROVIDERS: ATTEND Surgery
DX: C18.2 Malignant neoplasm of ascending colon (principal); J44.9 Chronic obstructive pulmonary disease, unspecified; G47.33 Obstructive sleep apnea (adult) (pediatric); E66.9 Obesity, unspecified; Z68.32 Body mass index [BMI] 32.0-32.9, adult; Z87.891 Personal history of nicotine dependence
CPT/HCPCS: 36561; 71045; C1788; J7120

== ENCOUNTER 2022-04-15 07:54 | Day surgery (SDC) | payer MEDICARE, MEDICAID ==
[~2022-04-15 07:54] MED LIST: PROPOFOL 500 MG/50 ML 500 MG/50 ML VIAL ONE
[2022-04-15] MEDS ORDERED: LACTATED RINGERS 1,000 ML IV ONE ×2 (08:19→09:43)
[2022-04-15] MEDS ORDERED: MIDAZOLAM 2 MG/2 ML VIAL ONE (08:45)
--- NOTE | 2022-04-15 08:48 | ANESTHESIA ---
Pre-Anesthesia VS, & Labs - Diagnosis hx colon ca - Procedure colonoscopy Vital Signs: Temp Pulse Resp BP Pulse Ox O2 Flow Rate 36.7 C 74 20 127/75 97 04/15/22 08:12 04/15/22 08:12 04/15/22 08:12 04/15/22 08:12 04/15/22 08:12 Height: 5 ft 9 in Weight (kg): 95.8 kg Body Mass Index: 31.1 BMI Classification: Obese - NPO >8 hours - Lab Results Lab results reviewed: Yes Home Medications and Allergies Home Medications: Ambulatory Orders Umeclidinium [place] [Incruse Ellipta] 1 puffs IH DAILY 04/09/22 Fluticasone 110 Mcg [Flovent] 1 puffs INH BID 03/14/16 Montelukast [Singulair] 10 mg PO DAILY 03/14/16 Omeprazole [PriLOSEC] 20 mg PO DAILY 03/14/16 Pravastatin Sodium 10 mg PO DAILY 03/14/16 lisinopriL [Lisinopril] 10 mg PO QPM 03/14/16 Albuterol Sulf [Ventolin Hfa Inhaler] 1 - 2 puffs INH Q4HR PRN 01/09/21 Umeclidinium [place] [Incruse Ellipta] 1 puffs IH DAILY 04/09/22 Allergies/Adverse Reactions: Allergies Allergy/AdvReac Type Severity Reaction Status Date / Time No Known Drug Allergies Allergy Verified 04/12/22 11:21 Anes History & Medical History - Anesthetic History Anesthesia Complications: reports: No previous complications Family history of Anesthesia Complications: Denies Family history of Malignant Hyperthermia: Denies - Medical History Cardiovascular: reports: Hypertension, High cholesterol, Arrhythmia Pulmonary: reports: Asthma, COPD, Sleep apnea Gastrointestinal: reports: Hiatal hernia, Other Urinary: reports: None Neuro: reports: None Musculoskeletal: reports: None Endocrine/Autoimmune: reports: None Blood Disorders: reports: None Skin: reports: Other Smoking Status: Former smoker (quit 2008) - Surgical History General: reports: Bowel surgery, Colonoscopy Dermatologic: reports: Skin cancer surgery Exam General: Alert, Oriented x3, Cooperative Dental: WNL, Loose/Frag Mouth Openin Fingerbreadth Neck Mobility: Normal Mallampati classification: II Thyromental Distance: 4-6 cm Respiratory: Lungs clear, Normal breath sounds, No respiratory distress Cardiovascular: Regular rate Neurological: Normal speech Mental/Cognitive Status: Alert/Oriented X3, Normal for patient Cognitive Status: Within normal limits Plan Anesthesia Type: Total IV Consent for Procedure(s) Verified and Reviewed: Yes Code Status: Attempt Resuscitation ASA classification: 3-Severe systemic disease Is this case an emergency?: No
[2022-04-15 10:12] VITALS: BP 107/66
--- NOTE | 2022-04-15 10:55 | ANESTHESIA POST OP EVALUATION ---
Anesthesia Post Eval - Post Anesthesia Eval Vitals: Last Vital Signs Temp 36.2 C L 04/15/22 10:11 Pulse 68 04/15/22 10:11 Resp 16 04/15/22 10:11 BP 107/66 04/15/22 10:11 Pulse Ox 98 04/15/22 10:11 O2 Flow Rate CV Function Including HR & BP: Stable Pain Control: Satisfactory Nausea & Vomiting: Negative Mental Status: Baseline Respiratory Status: Airway Patent Hydration Status: Satisfactory Anesthesia Complications: None
== END 2022-04-15 07:55 | disposition home or self-care (01) ==
LOC: SDS 07:54
PROVIDERS: ATTEND Surgery
PROC: 0DBL8ZZ Excision of Transverse Colon, Via Natural or Artificial Opening Endoscopic (ICD-10-PCS; 2022-04-15)
PROC: 0DBN8ZX Excision of Sigmoid Colon, Via Natural or Artificial Opening Endoscopic, Diagnostic (ICD-10-PCS; principal; 2022-04-15 09:00)
DX: Z08 Encounter for follow-up examination after completed treatment for malignant neoplasm (principal); D12.3 Benign neoplasm of transverse colon; K63.5 Polyp of colon; E66.9 Obesity, unspecified; J44.9 Chronic obstructive pulmonary disease, unspecified; G47.30 Sleep apnea, unspecified; Z68.31 Body mass index [BMI] 31.0-31.9, adult; Z98.0 Intestinal bypass and anastomosis status; Z90.49 Acquired absence of other specified parts of digestive tract; Z87.891 Personal history of nicotine dependence; Z85.038 Personal history of other malignant neoplasm of large intestine
CPT/HCPCS: 45380; 45385; J7120